=== PATIENT | male | born 1990 | race African-American/Black ===

== ENCOUNTER 2017-09-26 19:33 | Emergency (ER) | payer SELFPAY ==
[~2017-09-26] VITALS: Ht 190.5 cm; Wt 59.2 kg
[2017-09-26 19:35] VITALS: BP 134/96; PULSE 87; RESP 18; TEMP 99.6; O2SAT 100
--- NOTE | 2017-09-26 19:48 | PD ---
HPI Chief Complaint: Cold / Flu Symptoms Time Seen by Provider: 19:47 Travel History International Travel<30 days: No Contact w/Intl Traveler<30days: No Traveled to known affect area: No History of Present Illness HPI 27-year-old male presents to the emergency department for 4 days of cough congestion sinus pressure drainage earache subjective fever chills taking DayQuil without symptom improvement. Patient is otherwise in good health takes no medications on a routine basis. Patient does admit to tobacco use but has been tapering off as he is trying to discontinue tobacco use. Patient states as [id number] medications or not resolving symptoms she presents at this time. Patient is unable to identify exacerbating or alleviating factors. Patient has noted poor oral intake as he is just fatigued and does not feel like eating or drinking. Patient had no nausea no vomiting no diarrhea no dysuria frequency urgency or decreased urine output. Patient has noted some abdominal discomfort with cough only otherwise denies any abdominal discomfort or pain. Patient denies chest pain. Patient's had no wheezing. Facial pain and head pain to worsen with leaning forward. No dizziness no syncope or syncope. PFSH Past Medical History Narrative Medical Negative past medical history negative surgical history tobacco use nursing notes reviewed Social History Tobacco Use: Yes Allergies-Medications (Allergen,Severity, Reaction): Coded Allergies: No Known Allergies (Unverified , 09/26/17) Reported Meds & Prescriptions Reported Meds & Active Scripts Active Zithromax Z-Cecil (Azithromycin) 250 Mg Dspk 250 Mg PO DIRECTED 500 MG (2 tabs) day 1, then 1 tab days 2-5. Narrative Medication Take well Review of Systems Except as stated in HPI: all other systems reviewed are Neg General / Constitutional: Positive: Fever, No: Chills (Subjective) HENT: Positive: Headaches, Sore Throat, Congestion, No: Neck Stiffness, Neck Pain Cardiovascular: No: Chest Pain or Discomfort Respiratory: Positive: Cough, No: Shortness of Breath, Wheezing Gastrointestinal: No: Vomiting, Diarrhea Genitourinary: No: Dysuria, Decreased Urinary Output Musculoskeletal: Positive: Myalgias, Arthralgias Skin: No Rash Neurologic: Positive: Weakness, No: Dizziness, Syncope, Focal Abnormalities, Coordination Problem Psychiatric: No: Anxiety Hematologic/Lymphatic: No: Lymph Node Enlargement Physical Exam Narrative GENERAL: Well-developed well-nourished male no acute distress no respiratory distress SKIN: Warm and dry. HEAD: Normocephalic. EYES: No scleral icterus. No injection or drainage. ENT: Mucous membranes moist airways patent mild posterior pharyngeal erythema no edema; tympanic membranes no redness loss or loss of landmark. NECK: Supple, trachea midline. No JVD or lymphadenopathy. CARDIOVASCULAR: Regular rate and rhythm without murmurs, gallops, or rubs. RESPIRATORY: Breath sounds equal bilaterally. No accessory muscle use. GASTROINTESTINAL: Abdomen soft, non-tender, nondistended. MUSCULOSKELETAL: No cyanosis, or edema. BACK: Nontender without obvious deformity. No CVA tenderness. Data Data Last Documented VS Vital Signs Date Time Temp Pulse Resp B/P (MAP) Pulse Ox O2 Delivery O2 Flow Rate FiO2 09/26/17 19:49 20 99 Room Air 09/26/17 19:35 99.6 87 134/96 (109) Orders Orders Group A Rapid Strep Screen (09/26/17 19:48) Strep Culture (Group A) (09/26/17 19:50) Ed Discharge Order (09/26/17 20:19) MDM Medical Decision Making Medical Screen Exam Complete: Yes Emergency Medical Condition: Yes Medical Record Reviewed: Yes Differential Diagnosis Upper respiratory infection, pharyngitis, sinusitis, influenza, bronchitis Narrative Course Rapid strep antigen specimen collected and sent for resulting RSA: negative this is shared with the patient Patient will be treated for infectious sinusitis and encouraged to follow up with his PCP Diagnosis Primary Impression: Acute sinusitis Additional Impression: URI (upper respiratory infection) Referrals: Primary Care Physician as needed Patient Instructions: General Instructions Additional Instructions: Increase fluid hydration May use Afrin nasal decongestant per package directions Take ibuprofen/Advil/Motrin 600 mg as often as every 6 hours as needed for fever 100.4F or greater or for pain associated with inflammation Complete course of antibiotic as prescribed Return to the emergency department for any concerns or change in condition Follow-up with your primary care provider Med/Other Pt SpecificInfo: Prescription(s) given Scripts Azithromycin (Zithromax Z-Cecil) 250 Mg Dspk 250 MG PO DIRECTED for Infection, #1 DSPK 0 Refills 500 MG (2 tabs) day 1, then 1 tab days 2-5. Prov: Suzanne Fernández MD 09/26/17 Disposition: 01 DISCHARGE HOME Condition: Stable Suzanne Fernández MD Sep 26, 2017 19:48
[2017-09-26] MEDS ORDERED: ZITHTAB PO (20:05)
== END 2017-09-26 20:30 | disposition home or self-care (01) ==
LOC: PHEFT 19:33
DX: J01.90 Acute sinusitis, unspecified (principal); J06.9 Acute upper respiratory infection, unspecified; Z72.0 Tobacco use
CPT/HCPCS: 87081; 87880; 99283